=== PATIENT | male | born 1980 | race Caucasian/White ===

== ENCOUNTER 2022-12-18 07:49 | Emergency (ER) | payer SELFPAY ==
[2022-12-18 07:50] VITALS: BP 126/87; BP 131/103; PULSE 47; PULSE 55; RESP 14; RESP 18; TEMP 36.4; O2SAT 97; O2SAT 99; BMI 24.3
--- NOTE | 2022-12-18 08:19 | CT_ITS ---
INDICATION: Tearing chest pain EXAMINATION: CTA CHEST, ABDOMEN AND PELVIS WITH CONTRAST - TECHNIQUE: A CTA of the chest, abdomen, and pelvis is obtained with sagittal and coronal reconstructed MIP views. Three-dimensional surface rendered sequence of the thoracic and abdominal aorta was obtained. A radiation dose optimization technique was used for this scan. 100 mL of Isovue-370. Oral contrast: None. COMPARISON: None. FINDINGS: CT CHEST: THORACIC AORTA: No atheromatous disease, no aneurysmal changes or dissection. ABDOMINAL AORTA: No aneurysm or dissection. No significant atheromatous disease. The iliac arteries are unremarkable. LUNGS: Mild degree of increased markings at the lung bases suggestive of a linear atelectasis. No focal consolidation is seen. MEDIASTINUM: The thyroid gland is normal. No mediastinal or hilar adenopathy. HEART: Heart is normal size. No pericardial effusion. No CAD. CT ABDOMEN AND PELVIS: LIVER: Fatty infiltration of the liver. GALLBLADDER: The CBD is normal. Normal gallbladder. SPLEEN: Normal. PANCREAS: No masses or inflammation. ADRENAL GLANDS: Normal. KIDNEYS AND URETERS: The kidneys both enhance appropriately. There are normal size and shape. No hydronephrosis or nephrolithiasis. No renal masses or cysts. STOMACH: Normal. SMALL BOWEL: No abnormal distention of the small bowel. MESENTERY: No mesenteric inflammation. No ascites. COLON: No significant diverticulosis, masses or inflammation. The colon otherwise is normal. There is a large fatty ileocecal valve. APPENDIX: The appendix is visualized and normal. IVC: Normal. RETROPERITONEUM: No retroperitoneal lymphadenopathy. PELVIC STRUCTURES: Distended urinary bladder. SOFT TISSUES ABDOMEN: Small umbilical hernia containing fat. SOFT TISSUE CHEST: The extrathoracic soft tissues are normal. BONES: No fractures or significant degenerative disease. CT/CTA Chst, Abd, Pel W and/or WO IMPRESSION: Mildly of increased linear markings at the lung bases suggestive of linear atelectasis. No vascular abnormality is seen. Normal contrast-enhanced CT of the chest. Normal contrast-enhanced CT of the abdomen and pelvis. Electronically Signed: Edison Marinelli MD at 9:24 EDT ,
--- NOTE | 2022-12-18 08:20 | ED.VIS.CHEST ---
HPI History of Present Illness Chief Complaint: Chest Pain Narrative Narrative: 42-year-old male who denies significant past medical history except for receiving Biologics for eczema. He usually gets an injection every few weeks, but has not had one in over 2 weeks. He presents because of right-sided/sternal chest pain radiating to his back that began suddenly when he was unloading cabinets from a truck. He became diaphoretic and mildly short of breath. He denies any significant coronary artery disease risk factors. No exacerbating or alleviating factors. No pain when he moves his arm or torso. He describes it more as sharp and stabbing in the front on the right side radiating directly to his back. No paresthesias, no near syncope or other symptoms. [facility] Medical History Skin abnormality Home Medications NK 12/18/22 [History Last Taken Unknown] Allergy/AdvReac Type Severity Reaction Status Date / Time No Known Allergies Allergy Verified 12/18/22 07:51 Surgical History no surgical history Social History Smoking Status: Current every day smoker tobacco type: cigarettes ROS ROS ED ROS Narrative Constitutional: No fever, no chills. Sweaty. HEENT: No sore throat. No neck pain. No loss of vision. No rhinorrhea. Cardiovascular: Positive chest pain radiating to back. No palpitations. No pedal edema. Respiratory: No cough, no shortness of breath. Abdominal: No abdominal pain. No nausea. No vomiting. Genitourinary: No dysuria. No hematuria. Musculoskeletal: No myalgias. No arthralgias. Neurologic: No headaches. No dizziness. No lightheadedness. Skin: No rash. No change in color. Psychiatric: No depression. No anxiety. EXAM Physical Exam Narrative Exam Narrative: Afebrile. Vital signs noted. HEENT: Normocephalic. Atraumatic. PERRL, EOMI. Neck soft and supple. No point tenderness or step off. Cardiovascular: Positive bradycardia no murmurs, rubs, or gallops appreciated. Respiratory: No tachypnea. Lungs clear to auscultation bilaterally. Gastrointestinal: Abdomen soft, nontender, with normoactive bowel sounds. No rebound or guarding. Neurological: Awake. Alert. Nonfocal, nonlateralizing. Skin: No rash. Normal color. No pallor. Musculoskeletal: No pedal edema. Full range of motion extremities. Const Vital Signs: 12/18/22 07:50 12/18/22 08:08 12/18/22 07:50 Temperature 97.5 F L Temperature Source Temporal Pulse Rate 47 L 55 L Respiratory Rate 14 18 Respiratory Effort Normal Non-Labored Respiratory Pattern Normal Blood Pressure 131/103 H 126/87 H Blood Pressure Mean 112 100 Pulse Ox 99 97 Oxygen Delivery Method Room Air Room Air 12/18/22 08:27 12/18/22 08:51 12/18/22 09:00 Temperature Temperature Source Pulse Rate 60 38 L Respiratory Rate 12 14 Respiratory Effort Respiratory Pattern Blood Pressure 130/92 H 146/78 H Blood Pressure Mean 104 100 Pulse Ox 98 98 99 Oxygen Delivery Method Room Air Room Air Room Air 12/18/22 10:00 Temperature Temperature Source Pulse Rate 45 L Respiratory Rate 16 Respiratory Effort Respiratory Pattern Blood Pressure 140/86 H Blood Pressure Mean 104 Pulse Ox 99 Oxygen Delivery Method Room Air Heart Score History: Moderately Suspicious ECG: Normal Age: </= 45 years Risk Factors: No Risk Factors Troponin: </= Normal Limit Score: 1 MDM MDM MDM Narrative Medical decision making narrative: In the differential diagnosis is acute coronary syndrome, but of most concern would be aortic dissection given his history of lifting heavy things/unloading a truck, and with pain in his right chest radiating towards his back. EKG was obtained and interpreted by myself independently as sinus bradycardia at 47 bpm with a sinus arrhythmia but no acute ST changes. No STEMI. Laboratory work and CTA imaging of the chest, abdomen, and pelvis will be obtained to rule out pulmonary embolism/dissection. I reviewed the patient's laboratory work, he has a normal white count of 7.6, hemoglobin normal at 14.9, hematocrit 44.8, platelet count normal at 241. In review of his BMP, chloride slightly elevated at 108 but normal sodium of 141, normal potassium of 3.8. BUN and creatinine are normal. Initial high-sensitivity troponin is 4, repeat delta at 2 hours is also for for a delta of 0. I do feel that non-STEMI has been ruled out or cardiac ischemia. I reviewed the CT imaging, and reviewed the radiology report of the CTA of the chest abdomen and pelvis and there is no evidence of aortic dissection or coronary artery disease, or any acute process. At this point in time, he had been administered Toradol, and appeared stable upon repeat examination. I do feel that he may have more of a thoracic wall strain from lifting heavy cabinets. I feel he be discharged safely home with follow-up. I do not feel he requires observation and that his risk for coronary artery event is low. He is to follow-up with a primary care provider and take [id number] analgesics such as Tylenol and ibuprofen. I do not feel narcotic pain medication is indicated. He was given a note to be off work for the rest of the day. Return instructions reviewed. Disposition is discharged home in stable condition. History & Record Review Discussion w/independent historian: Patient Additional record(s) reviewed:: Prior ED visit Lab Data Attestation: I reviewed the patient's lab results. Labs: Laboratory Results - last 24 hr 12/18/22 12/18/22 12/18/22 08:15 08:15 10:15 WBC 7.6 RBC 4.72 Hgb 14.9 Hct 44.8 MCV 94.9 H MCH 31.6 MCHC 33.3 RDW Std Deviation 48.0 H RDW Coeff of Miquel 13.7 Plt Count 241 MPV 10.1 Immature Gran % (Auto) 0.400 Neut % (Auto) 52.7 Lymph % (Auto) 35.6 [place] % (Auto) 7.2 Eos % (Auto) 3.3 Baso % (Auto) 0.8 Absolute Neuts (auto) 4.0 Absolute Lymphs (auto) 2.72 Nucleated RBC % 0 Sodium 141 Potassium 3.8 Chloride 108 H Carbon Dioxide 29.0 Anion Gap 4 L BUN 12 Creatinine 0.91 Estim Creat Clear Calc 102.31 Est GFR (MDRD) Af Amer 117 Est GFR (MDRD) Non-Af 97 BUN/Creatinine Ratio 13.2 Glucose 103 Calcium 9.2 Troponin I High Sens 4 4 Radiography Diagnostic Testing: Clinical Impression(s) from Imaging Studies Chest/Abdomen/Pelvis CTA 12/18/22 08:19 IMPRESSION: Mildly of increased linear markings at the lung bases suggestive of linear atelectasis. No vascular abnormality is seen. Normal contrast-enhanced CT of the chest. Normal contrast-enhanced CT of the abdomen and pelvis. Electronically Signed: Edison Marinelli MD at 9:24 EDT , Discharge Plan Triage Chief Complaint: Chest Pain ED Provider: Horacio Polk Dx/Rx/DC Orders Clinical Impression: Chest pain, Back pain Instructions: ED Chest Pain, Noncardiac, ED Back Pain (Acute or Chronic), ED Chest Wall Strain Prescriptions: No Action NK Stand Alone Forms: Work / School Excuse Primary Care Provider: Care Physician,No Primary Referrals: Parish Fisher MD [Med Staff - Active Staff] - 3-5 Days if not improving Care Physician,No Primary [Primary Care Provider] - Disposition Disposition: Home, Self Care
[2022-12-18 08:27] VITALS: O2SAT 98
[2022-12-18 08:29] LABS: Absolute Lymphocyte Count 2.72 X10^3/uL (0.83-4.51); Basophil# 0.06 X10^3/uL; Basophil% 0.8 % (0-1); Eosinophil# 0.25 X10^3/uL; Eosinophils% 3.3 % (0-5); Hematocrit 44.8 % (40-54); Hemoglobin 14.9 g/dL (13.0-16.5); Lymphocyte # 2.72 X10^3/ul (0.83-4.51); Lymphocyte % 35.6 % (19-41); Mean Corp Hgb Conc 33.3 g/dL (32-36); Mean Corpuscular Hgb 31.6 pg (27.0-32.0); Mean Corpuscular Volume 94.9 fL (80-94); Mean Platelet Vol. 10.1 fl (6.2-12.0); Monocyte# 0.55 X10^3/uL; Monocyte% 7.2 % (0-10); NRBC Flagged by Analyzer 0 % (0-5); Neutrophil # 4.03 X10^3/uL (2.7-7.7); Neutrophil % 52.7 % (47-70); Platelet Count 241 K/mm3 (150-450); RBC Distribution Width CV 13.7 % (11.6-14.6); Red Blood Count 4.72 M/mm3 (4.6-6.2); White Blood Count 7.6 K/mm3 (4.4-11.0)
[2022-12-18] MEDS: 0.9% Normal Saline 1,000 ML 1000 ML IV (08:29)
[2022-12-18] MEDS: Aspirin 81 MG TAB.CHEW 324 MG PO (08:30)
--- NOTE | 2022-12-18 08:30 | EKG12_ITS ---
Test Reason : CP Blood Pressure : / mmHG Vent. Rate : 047 BPM Atrial Rate : 047 BPM P-R Int : 172 ms QRS Dur : 102 ms QT Int : 414 ms P-R-T Axes : 026 002 033 degrees QTc Int : 366 ms Sinus bradycardia with sinus arrhythmia Incomplete right bundle branch block Borderline ECG Confirmed by ERIS ROMEO, JULIO ([id number]), telegraph editor IRAJ WOMACK ([id number]) on 12/21/2022 10:30:07 AM Referred By: ANA PAULA Confirmed By:JULIO SCHULTE MD
[2022-12-18 08:49] LABS: Anion Gap 4 (5-15); BUN 12 mg/dL (7-18); BUN/Creat Ratio 13.2 RATIO (10-20); Calcium,Total 9.2 mg/dL (8.5-10.1); Chloride 108 mmol/L (98-107); Creatinine, Serum 0.91 mg/dL (0.70-1.30); EST Glomerular Filtration Rate 97 mL/min (>60); Est Glom Filt Rate - Afr Amer 117 mL/min (>60); Estimated Creatinine Clearance 102.31 ml/min; Glucose 103 mg/dL (74-106); Potassium 3.8 mmol/L (3.5-5.1); Sodium Level 141 mmol/L (136-145); Troponin-I HS (w/2H Reflex) 4 pg/mL (3.0-78.0)
[2022-12-18 08:51] VITALS: BP 130/92; PULSE 60; RESP 12; O2SAT 98
[2022-12-18 09:00] VITALS: BP 146/78; PULSE 38; RESP 14; O2SAT 99
[2022-12-18 10:00] VITALS: BP 140/86; PULSE 45; RESP 16; O2SAT 99
[2022-12-18] MEDS: Ketorolac 30 MG/ML Syringe IV (10:01)
[2022-12-18 10:26] LABS: Reflex Troponin-HS? (from REC) Y
[2022-12-18 10:45] LABS: Troponin-I HS 4 pg/mL (3.0-78.0)
[2022-12-18 11:40] VITALS: BP 138/86; PULSE 50; RESP 16; O2SAT 99
== END 2022-12-18 11:43 | disposition home or self-care (01) ==
PROVIDERS: Emergency Provider Emergency Medicine; Visit Provider Emergency Medicine
DX: R07.9 Chest pain, unspecified (principal); M54.9 Dorsalgia, unspecified; F17.210 Nicotine dependence, cigarettes, uncomplicated; L30.9 Dermatitis, unspecified; Z79.899 Other long term (current) drug therapy
CPT/HCPCS: 71275; 74174; 80048; 84484; 85025; 93005; 96361; 96374; 99285; J7030; Q9967; A4216